=== PATIENT | male | born 1995 | race Caucasian/White ===

== ENCOUNTER 2018-05-14 09:10 | Emergency (ER) | payer OTHER ==
[2018-05-14] MEDS: ACETAMINOPHEN TAB 650MG DOSE (2X325MG) PO (10:52)
== END 2018-05-14 11:00 | disposition home or self-care (01) ==
LOC: M ED 09:10
DX: S00.83XA Contusion of other part of head, initial encounter (principal); W18.00XA Striking against unspecified object with subsequent fall, initial encounter; Y92.019 Unspecified place in single-family (private) house as the place of occurrence of the external cause
CPT/HCPCS: 70450

== ENCOUNTER → 2018-05-22 | Outpatient (CLI) | payer OTHER | LOC: M RAD 14:50 | DX: R51 Headache (principal); M47.892 Other spondylosis, cervical region; M47.896 Other spondylosis, lumbar region | CPT/HCPCS: 70551 ==

== ENCOUNTER → 2018-06-17 | Outpatient (REF) | payer OTHER ==
[2018-06-17 16:16] LABS: FREE T4 1.02 NG/DL (0.76-1.46)
== END ==
LOC: M LABDRAW1 15:16
DX: E03.9 Hypothyroidism, unspecified (principal)
CPT/HCPCS: 84443

== ENCOUNTER → 2018-09-04 | Outpatient (REF) | payer OTHER ==
[~2018-09-04] MED LIST: DEXTROAMP-AMPHETAMIN PO; ESCI20TA PO; LEVO50TA5 PO; MELO15TA28 PO; ROBA500T PO
[2018-09-04 18:26] LABS: FREE T4 1.07 NG/DL (0.76-1.46); THYROID STIMULATING HORMONE 2.2 uIU/ML (0.358-3.740)
== END ==
LOC: M LABDRAW1 17:25
PROVIDERS: ATTEND Nurse Practitioner Family
DX: E03.9 Hypothyroidism, unspecified (principal)

== ENCOUNTER 2018-09-06 17:44 | Emergency (ER) | payer OTHER ==
[~2018-09-06] VITALS: Ht 180.3 cm; Wt 109.1 kg
[~2018-09-06 17:44] MED LIST changes: -DEXTROAMP-AMPHETAMIN PO; -ESCI20TA PO; -ROBA500T PO
[2018-09-06 17:45] VITALS: BP 139/86
[2018-09-06] MEDS ORDERED: ESCI20TA PO (17:51)
[2018-09-06] MEDS ORDERED: DEXTROAMP-AMPHETAMIN PO (17:51)
[2018-09-06] MEDS ORDERED: METHOCARBAMOL 750 MG TAB PO ONE (18:15)
[2018-09-06] MEDS ORDERED: NAPROXEN 250 MG TAB PO ONE (18:15)
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
[2018-09-06] MEDS ORDERED: ROBA500T PO (20:26)
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
== END 2018-09-06 20:32 | disposition home or self-care (01) ==
LOC: M ED 17:44
DX: M54.2 Cervicalgia (principal); M54.6 Pain in thoracic spine; R51 Headache; G93.5 Compression of brain; Z79.899 Other long term (current) drug therapy